=== PATIENT | male | born 1980 | race Caucasian/White ===

== ENCOUNTER 2023-05-25 03:20 | Emergency (ER) | payer OTHER ==
[~2023-05-25] VITALS: Ht 177.8 cm; Wt 145.1 kg
[2023-05-25 03:25] VITALS: BP 119/77; PULSE 106; RESP 16; TEMP 98.1; O2SAT 97
[2023-05-25 03:46] VITALS: O2SAT 97
== END 2023-05-25 05:10 | disposition home or self-care (01) ==
LOC: MED 03:20
DX: S50.11XA Contusion of right forearm, initial encounter (principal); E11.9 Type 2 diabetes mellitus without complications; I10 Essential (primary) hypertension; V89.2XXA Person injured in unspecified motor-vehicle accident, traffic, initial encounter; Y93.89 Activity, other specified; Y92.89 Other specified places as the place of occurrence of the external cause; Y99.8 Other external cause status
CPT/HCPCS: 71045; 73090; 99284; Q0092